=== PATIENT | male | born 1960 | race Caucasian/White ===

== ENCOUNTER 2017-02-09 14:06 | Emergency (ER) | payer MEDICAID, OTHER ==
[~2017-02-09] VITALS: Ht 177.8 cm; Wt 74.2 kg
[~2017-02-09 14:06] MED LIST: DOXY100T PO; DOXY100T9 PO; LORA-446 PO
[2017-02-09 14:09] VITALS: BP 155/81
[2017-02-09] MEDS ORDERED: SODIUM CHLORIDE FLUSH 10ML SYR IVF ONE (15:00)
[2017-02-09] MEDS ORDERED: SODIUM CHLORIDE 0.9% 1,000ML IVBOLUS ONE (15:00)
[2017-02-09 15:26] LABS: HEMATOCRIT 43.9 % (39.2-51.8); HEMOGLOBIN 14.8 g/dL (13.7-18.0)
[2017-02-09 15:35] LABS: ASPARTATE AMINO TRANSFERASE 38 U/L (15-37); BLOOD UREA NITROGEN 15 mg/dL (7-18)
[2017-02-09 15:44] LABS: IS PT STATUS REG ER OR PRE ER? YES
== END 2017-02-09 17:30 | disposition home or self-care (01) ==
LOC: ED 16:28
DX: K29.20 Alcoholic gastritis without bleeding (principal); K52.9 Noninfective gastroenteritis and colitis, unspecified; F10.220 Alcohol dependence with intoxication, uncomplicated; J44.9 Chronic obstructive pulmonary disease, unspecified; I10 Essential (primary) hypertension
CPT/HCPCS: 36415; 74020; 80053; 83690; 84484; 85025; 93005; 99285

== ENCOUNTER 2019-10-29 09:50 | Observation (INO) | payer SELFPAY ==
[~2019-10-29] VITALS: Ht 172.7 cm; Wt 79.3 kg
[~2019-10-29 09:50] MED LIST changes: +DOXY-162 PO; -DOXY100T9 PO
--- NOTE | 2019-10-29 10:42 | NUR ---
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
[2019-10-29] MEDS ORDERED: NITROGLYCERIN SINGLE TAB 0.4 MG SL PRN (11:00)
[2019-10-29] MEDS ORDERED: ASPIRIN 81 MG TABLET CHEW PO ONE (11:00)
[2019-10-29] MEDS ORDERED: SODIUM CHLORIDE FLUSH 10ML SYR IVF ONE (11:00)
--- NOTE | 2019-10-29 11:03 | NUR ---
REPORT RECEIVED FROM SANYA MARKS. ASSUMED CARE OF PT AT THIS TIME. PT CURRENTLY RESTING ON GURNEY IN QUIET, DARK ROOM. NO ACUTE DISTRESS NOTED AT THIS TIME. RESP EVEN AND UNLABORED. AO X 4. SKIN PWD. PT ON CONT BP, CARDIAC AND O2 MONITORS. CALL LIGHT WITHIN REACH. WILL CONT TO MONITOR PT.
[2019-10-29] MEDS ORDERED: ASPIRIN 81 MG TABLET CHEW ONE (11:09)
[2019-10-29] MEDS ORDERED: NITROGLYCERIN SINGLE TAB 0.4 MG SL ONE (11:09)
[2019-10-29 11:30] LABS: BASOPHILS # (AUTO) 0.02 x10^3/uL (0-0.1); BASOPHILS % (AUTO) 0 % (0-1); EOSINOPHILS # (AUTO) 0.11 x10^3/uL (0-0.4); EOSINOPHILS % (AUTO) 2 % (1-7); LYMPHOCYTES # (AUTO) 2.08 x10^3/uL (1-3.4); LYMPHOCYTES % (AUTO) 31 % (22-44); MD NO; MEAN CORPUSCULAR HEMOGLOBIN 29.8 pg (27.5-34.5); MEAN CORPUSCULAR HGB CONC 33.8 g/dL (33.2-36.2); MEAN PLATELET VOLUME 8.3 fL (7.4-10.4); MONOCYTES % (AUTO) 9 % (2-9); NEUTROPHILS # (AUTO) 3.96 x10^3/uL (1.8-6.8); NEUTROPHILS % (AUTO) 59 % (42-75); PLATELET COUNT 341 x10^3/uL (130-400); RED BLOOD COUNT 5.26 x10^6/uL (4.38-5.82); RED CELL DISTRIBUTION WIDTH 14.7 % (9.4-14.8)
--- NOTE | 2019-10-29 11:30 | NUR ---
PT CURRENTLY REPORTS 2/10 STERNAL CP. 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 PT AO X 4. SKIN PWD. RESP EVEN AND UNLABORED. 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 PT MEDICATED ORDERED FOR PAIN. CALL LIGHT WITHIN REACH. WILL CONT TO MONITOR PT.
[2019-10-29 11:38] LABS: CHLORIDE 112 mmol/L (98-107)
[2019-10-29 11:39] LABS: ALANINE AMINOTRANSFERASE 24 U/L (12-78); ALBUMIN 3.6 g/dL (3.4-5.0); ANION GAP 6 mmol/L (5-15); CALCIUM 8.8 mg/dL (8.5-10.1); CREATININE 0.78 mg/dL (0.7-1.3)
[2019-10-29 11:43] LABS: ALKALINE PHOSPHATASE 73 U/L (45-117); BILIRUBIN,TOTAL 0.2 mg/dL (0.2-1.0); TOTAL PROTEIN 7.5 g/dL (6.4-8.2); TROPONIN I < 0.015 ng/mL (0.000-0.045)
--- NOTE | 2019-10-29 11:59 | NUR ---
PT CURRENTLY SLEEPING ON GURNEY, BUT AWAKENS EASILY TO NAME BEING CALLED. PT AO X 4. SKIN PWD. RESP EVEN AND UNLABORED. PT CURRENTLY DENIES PAIN. PT ON CONT BP, CARDIAC AND O2 MONITORS. CALL LIGHT WITHIN REACH. WILL CONT TO MONITOR PT.
--- NOTE | 2019-10-29 13:10 | NUR ---
PT CURRENTLY SLEEPING ON [id number]. AWAKENS EASILY TO NAME BEING CALLED. NO ACUTE DISTRESS NOTED. PT CURRENTLY DENIES PAIN. PT AO X 4. SKIN PWD. RESP EVEN AND UNLABORED. 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 PT ON CONT BP, CARDIAC AND O2 MONITORS. CALL LIGHT WITHIN REACH. WILL CONT TO MONITOR PT.
[2019-10-29] MEDS ORDERED: SODIUM CHLORIDE FLUSH 10ML SYR IVF PRN (13:30)
--- NOTE | 2019-10-29 13:59 | NUR ---
REPORT TO SANYA ROBBINS WHO ASSUMED CARE OF PT.
[2019-10-29] MEDS ORDERED: ACETAMINOPHEN 325 MG TABLET PO PRN (14:00)
[2019-10-29] MEDS ORDERED: NICOTINE 14MG/24 HR PATCH.TD24 TD ONE (14:00)
[2019-10-29] MEDS ORDERED: ONDANSETRON ODT 4 MG PO PRN (14:00)
[2019-10-29] MEDS ORDERED: ONDANSETRON 2MG/ML, 2ML IVPush PRN (14:00)
--- NOTE | 2019-10-29 14:22 | NUR ---
RECEIVED REPORT FROM OSCAR SEGUNDO. INTRODUCED MYSELF TO PT. PT RESTING COMFORTABLY AND VS STABLE. WILL CONTINUE TO MONITOR PT.
--- NOTE | 2019-10-29 15:08 | NUR ---
GAVE REPORT TO MARCO A SEGUNDO
[2019-10-29] MEDS: NICOTINE 14MG/24 HR PATCH.TD24 TD SCH (16:15)
[2019-10-29] MEDS: ENOXAPARIN 40 MG/0.4 ML SQ SCH (16:51)
[2019-10-29 17:33] LABS: TROPONIN I < 0.015 ng/mL (0.000-0.045)
[2019-10-29 18:20] VITALS: BP 124/76
[2019-10-29 22:57] LABS: TROPONIN I < 0.015 ng/mL (0.000-0.045)
[2019-10-30 00:04] VITALS: BP 116/80
[2019-10-30] MEDS ORDERED: ASPIRIN 81 MG TABLET CHEW PO SCH (06:00)
[2019-10-30 06:07] LABS: BASOPHILS # (AUTO) 0.02 x10^3/uL (0-0.1); BASOPHILS % (AUTO) 0 % (0-1); EOSINOPHILS % (AUTO) 1 % (1-7); LYMPHOCYTES % (AUTO) 20 % (22-44); MD NO; MEAN CORPUSCULAR HEMOGLOBIN 29.2 pg (27.5-34.5); MEAN CORPUSCULAR HGB CONC 33.3 g/dL (33.2-36.2); MEAN CORPUSCULAR VOLUME 87.5 fL (81-97); MEAN PLATELET VOLUME 8.6 fL (7.4-10.4); MONOCYTES # (AUTO) 0.64 x10^3/uL (0.2-0.8); MONOCYTES % (AUTO) 8 % (2-9); NEUTROPHILS # (AUTO) 5.66 x10^3/uL (1.8-6.8); NEUTROPHILS % (AUTO) 71 % (42-75); PLATELET COUNT 324 x10^3/uL (130-400); RED BLOOD COUNT 5.36 x10^6/uL (4.38-5.82); RED CELL DISTRIBUTION WIDTH 14.1 % (9.4-14.8)
[2019-10-30 06:12] LABS: ALANINE AMINOTRANSFERASE 21 U/L (12-78); ALBUMIN 3.5 g/dL (3.4-5.0); ANION GAP 5 mmol/L (5-15); CALCIUM 8.9 mg/dL (8.5-10.1); CHLORIDE 107 mmol/L (98-107); CREATININE 0.76 mg/dL (0.7-1.3)
[2019-10-30 06:15] LABS: ALKALINE PHOSPHATASE 53 U/L (45-117); BILIRUBIN,TOTAL 0.6 mg/dL (0.2-1.0); CHOL/HDL RATIO 4.3; CHOLESTEROL, TOTAL 191 mg/dL (140-239); HDL CHOL % 23 % (26-37); HDL CHOLESTEROL (DIRECT) 44 mg/dL (40-60); LDL CHOLESTEROL,CALCULATED 116 mg/dL (54-169); LDL/HDL RATIO 2.6 (0.5-3.0); TOTAL PROTEIN 7.1 g/dL (6.4-8.2); TRIGLYCERIDES 157 mg/dL (50-200); VLDL CHOLESTEROL 31 mg/dL (0-25)
[2019-10-30 07:05] VITALS: BP 137/83
[2019-10-30] MEDS ORDERED: REGADENOSON 0.4 MG/5 ML SYRINGE ONE (08:24)
[2019-10-30] MEDS ORDERED: MULTIVITAMIN 1 TABLET PO SCH (09:00)
[2019-10-30] MEDS: ENOXAPARIN 40 MG/0.4 ML SQ SCH (14:05)
[2019-10-30] MEDS: NICOTINE 14MG/24 HR PATCH.TD24 TD SCH (14:06)
[2019-10-30 14:38] VITALS: BP 128/78
[2019-10-30] MEDS ORDERED: CARV3.12 PO (16:52)
[2019-10-30] MEDS ORDERED: MULT-449 PO (16:52)
== END 2019-10-30 17:44 | disposition home or self-care (01) ==
LOC: ED 12:24 → EDIP 13:24 → INTOOBSV 13:24 → 5SO 15:32
PROVIDERS: ADMIT Internal Medicine; ATTEND Internal Medicine
DX: R07.89 Other chest pain (principal); I11.0 Hypertensive heart disease with heart failure; F41.1 Generalized anxiety disorder; I42.8 Other cardiomyopathies; F17.200 Nicotine dependence, unspecified, uncomplicated; I50.20 Unspecified systolic (congestive) heart failure; J44.9 Chronic obstructive pulmonary disease, unspecified; Z79.899 Other long term (current) drug therapy
CPT/HCPCS: 36415; 71045; 78452; 80053; 80061; 83735; 84443; 84484; 85025; 85379; 93005; 93017; 93306; 96372; 99285; A9502; G0378; J1650; J2785

== ENCOUNTER 2019-11-28 10:06 | Emergency (ER) | payer SELFPAY ==
[~2019-11-28] VITALS: Ht 172.7 cm; Wt 76.4 kg
[~2019-11-28 10:06] MED LIST changes: +CARV3.12 PO; +MULT-449 PO
--- NOTE | 2019-11-28 10:23 | NUR ---
TIME RECORDER: PT TO ROOM FROM FRED ADHIKARI
[2019-11-28] MEDS ORDERED: SODIUM CHLORIDE FLUSH 10ML SYR IVF ONE (11:00)
[2019-11-28] MEDS ORDERED: maalox/diphenh/lido/sucralfate 5 ML PO PRN (11:00)
[2019-11-28] MEDS ORDERED: SODIUM CHLORIDE 0.9% 1,000ML IVBOLUS ONE (11:00)
[2019-11-28] MEDS ORDERED: DEXAMETHASONE 4 MG/ML, 1ML IVPush ONE (11:00)
[2019-11-28 11:21] LABS: BASOPHILS # (AUTO) 0.02 x10^3/uL (0-0.1); BASOPHILS % (AUTO) 0 % (0-1); EOSINOPHILS # (AUTO) 0.01 x10^3/uL (0-0.4); EOSINOPHILS % (AUTO) 0 % (1-7); LYMPHOCYTES # (AUTO) 0.93 x10^3/uL (1-3.4); LYMPHOCYTES % (AUTO) 13 % (22-44); MD NO; MEAN CORPUSCULAR HEMOGLOBIN 29.5 pg (27.5-34.5); MEAN CORPUSCULAR HGB CONC 33.4 g/dL (33.2-36.2); MEAN CORPUSCULAR VOLUME 88.2 fL (81-97); MEAN PLATELET VOLUME 8.1 fL (7.4-10.4); MONOCYTES # (AUTO) 0.99 x10^3/uL (0.2-0.8); MONOCYTES % (AUTO) 14 % (2-9); NEUTROPHILS # (AUTO) 5.31 x10^3/uL (1.8-6.8); NEUTROPHILS % (AUTO) 73 % (42-75); PLATELET COUNT 307 x10^3/uL (130-400); RED CELL DISTRIBUTION WIDTH 14.4 % (9.4-14.8)
[2019-11-28] MEDS ORDERED: DEXAMETHASONE 4 MG/ML, 1ML ONE (11:26)
[2019-11-28 11:30] LABS: ALBUMIN 3.5 g/dL (3.4-5.0); ANION GAP 10 mmol/L (5-15); CHLORIDE 101 mmol/L (98-107); CREATININE 1.08 mg/dL (0.7-1.3)
--- NOTE | 2019-11-28 11:36 | NUR ---
SORES MOUTH AND THROAT FOR A WEEK. DIFFICULTY DRINKING AND EATING BECAUSE OF PAIN. ADDITIONALLY C/O ESOPHAGEAL PAIN WHEN SWALLOWING. IV FLUIDS INFUSING, MEDICATED WITH DECADRON NOTED ON AUG. MAGIC MOUTHWASH REQUESTED FROM PHARMACY.
--- NOTE | 2019-11-28 12:59 | NUR ---
resting with eyes closed while awaiting re-eval
[2019-11-28 13:57] VITALS: BP 147/81
== END 2019-11-28 14:00 | disposition home or self-care (01) ==
LOC: ED 13:00
DX: J02.8 Acute pharyngitis due to other specified organisms (principal); B97.89 Other viral agents as the cause of diseases classified elsewhere; K13.79 Other lesions of oral mucosa; R42 Dizziness and giddiness; R00.0 Tachycardia, unspecified; J44.9 Chronic obstructive pulmonary disease, unspecified; I10 Essential (primary) hypertension
CPT/HCPCS: 36415; 80048; 82040; 85025; 93005; 96361; 96374; 99284; J1100; J7030

== ENCOUNTER 2020-02-18 04:32 | Emergency (ER) | payer SELFPAY ==
[~2020-02-18] VITALS: Ht 172.7 cm; Wt 77.3 kg
[2020-02-18] MEDS ORDERED: ONDANSETRON ODT 4 MG PO ONE (05:30)
[2020-02-18] MEDS ORDERED: LORazepam 1MG TABLET PO ONE (05:30)
[2020-02-18] MEDS ORDERED: THIAMINE 100MG TABLET PO ONE (05:30)
[2020-02-18] MEDS ORDERED: ONDANSETRON ODT 4 MG ONE (05:39)
[2020-02-18] MEDS ORDERED: LORazepam 1MG TABLET ONE (05:40)
[2020-02-18 05:53] LABS: BASOPHILS # (AUTO) 0.02 x10^3/uL (0-0.1); BASOPHILS % (AUTO) 0 % (0-1); EOSINOPHILS # (AUTO) 0.09 x10^3/uL (0-0.4); EOSINOPHILS % (AUTO) 1 % (1-7); LYMPHOCYTES # (AUTO) 1.49 x10^3/uL (1-3.4); LYMPHOCYTES % (AUTO) 21 % (22-44); MD NO; MEAN CORPUSCULAR HEMOGLOBIN 29.6 pg (27.5-34.5); MEAN CORPUSCULAR HGB CONC 33.1 g/dL (33.2-36.2); MEAN CORPUSCULAR VOLUME 89.2 fL (81-97); MEAN PLATELET VOLUME 7.9 fL (7.4-10.4); MONOCYTES # (AUTO) 0.94 x10^3/uL (0.2-0.8); MONOCYTES % (AUTO) 13 % (2-9); NEUTROPHILS # (AUTO) 4.61 x10^3/uL (1.8-6.8); NEUTROPHILS % (AUTO) 65 % (42-75); PLATELET COUNT 272 x10^3/uL (130-400); RED CELL DISTRIBUTION WIDTH 15.3 % (9.4-14.8)
[2020-02-18] MEDS ORDERED: THIAMINE 100MG TABLET ONE (05:54)
[2020-02-18 06:00] LABS: ALANINE AMINOTRANSFERASE 25 U/L (12-78); ALBUMIN 3.6 g/dL (3.4-5.0); ANION GAP 7 mmol/L (5-15); CALCIUM 8.6 mg/dL (8.5-10.1); CHLORIDE 106 mmol/L (98-107)
[2020-02-18 06:02] LABS: ALKALINE PHOSPHATASE 78 U/L (45-117); BILIRUBIN,TOTAL 0.3 mg/dL (0.2-1.0); CREATININE 0.63 mg/dL (0.7-1.3); TOTAL PROTEIN 7.1 g/dL (6.4-8.2)
--- NOTE | 2020-02-18 06:23 | NUR ---
Alert, answering questions appropriately. Pt presents to ED seeking help with detoxing. Pt states increased ETOH use x months r/t being out of work d/t COVID. States he drinks 1+ liters of hard alcohol daily. Last drink ~1 hour ago. Pt states he wants to return to work and stop drinking, hx of ETOH withdrawal, unknown seizure hx. C/o BARILLAS, tremors, and mild nausea with associated dry heaves. Denies chest pain. Denies SOB. Denies abd pain. Denies fever/chills. Ambulating independently, steady gait.
[2020-02-18 06:58] VITALS: BP 147/89
== END 2020-02-18 07:01 | disposition home or self-care (01) ==
LOC: ED 05:35
DX: F10.239 Alcohol dependence with withdrawal, unspecified (principal); R45.4 Irritability and anger; R11.2 Nausea with vomiting, unspecified; J44.9 Chronic obstructive pulmonary disease, unspecified; I10 Essential (primary) hypertension; E87.6 Hypokalemia; F17.200 Nicotine dependence, unspecified, uncomplicated; Y90.0 Blood alcohol level of less than 20 mg/100 ml
CPT/HCPCS: 36415; 80053; 85025; 99284; Q0162

== ENCOUNTER 2020-09-02 18:51 | Emergency (ER) | payer SELFPAY ==
[~2020-09-02] VITALS: Ht 172.7 cm; Wt 79.4 kg
[2020-09-02 18:57] VITALS: BP 138/81
--- NOTE | 2020-09-02 19:30 | NUR ---
PT AMBULATORY TO THE BATHROOM WITH A STEADY GAIT
--- NOTE | 2020-09-02 20:30 | NUR ---
pt unhappy that we will not perscribe ativan or librium. pt escorted out by security.
== END 2020-09-02 20:32 | disposition home or self-care (01) ==
LOC: ED 20:16
DX: Z00.00 Encounter for general adult medical examination without abnormal findings (principal); F10.229 Alcohol dependence with intoxication, unspecified; J44.9 Chronic obstructive pulmonary disease, unspecified; I10 Essential (primary) hypertension; Y90.0 Blood alcohol level of less than 20 mg/100 ml
CPT/HCPCS: 99281

== ENCOUNTER 2021-01-05 13:27 | Emergency (ER) | payer MEDICAID ==
[~2021-01-05] VITALS: Ht 172.7 cm; Wt 74.5 kg
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
--- NOTE | 2021-01-05 13:44 | NUR ---
ERP DR. GASCA AT BEDSIDE FOR EVAL.
[2021-01-05] MEDS ORDERED: PERMETHRIN CRM 5%, 60GM ONE (14:26)
[2021-01-05] MEDS ORDERED: DIPH,PERTUSS(ACELL),TET VAC/PF 0.5 ML IM-VACC ONE ×2 (14:27→14:30)
[2021-01-05 14:30] VITALS: BP 102/52
[2021-01-05] MEDS ORDERED: PERMETHRIN CRM 5%, 60GM TP ONE (14:30)
--- NOTE | 2021-01-05 15:14 | NUR ---
TASK RN: PT REC'VD DISCHARGE INSTRUCTIONS AND EDUCATION. PT HAD NO FURTHER QUESTIONS. PT AMBULATED TO DC AREA, STEADY GAIT.
== END 2021-01-05 15:20 | disposition home or self-care (01) ==
LOC: ED 14:59
DX: B86 Scabies (principal); F10.20 Alcohol dependence, uncomplicated; Y90.0 Blood alcohol level of less than 20 mg/100 ml; Z72.9 Problem related to lifestyle, unspecified; J44.9 Chronic obstructive pulmonary disease, unspecified; I10 Essential (primary) hypertension
CPT/HCPCS: 90471; 90715; 99283

== ENCOUNTER 2021-01-06 14:46 | Emergency (ER) | payer MEDICAID ==
[~2021-01-06] VITALS: Ht 167.6 cm; Wt 65.0 kg
[2021-01-06 14:51] VITALS: BP 132/81
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
== END 2021-01-06 15:58 | disposition home or self-care (01) ==
LOC: ED 15:30
DX: B86 Scabies (principal); F17.210 Nicotine dependence, cigarettes, uncomplicated; J44.9 Chronic obstructive pulmonary disease, unspecified; I11.9 Hypertensive heart disease without heart failure
CPT/HCPCS: 99283; 99406

== ENCOUNTER 2021-01-21 04:17 | Emergency (ER) | payer MEDICAID ==
[~2021-01-21] VITALS: Ht 172.7 cm; Wt 75.0 kg
[2021-01-21 04:25] VITALS: BP 127/76
[2021-01-21] MEDS ORDERED: THIAMINE 100MG TABLET PO ONE (04:30)
[2021-01-21 04:53] LABS: BASOPHILS % (AUTO) 1 % (0-1); EOSINOPHILS % (AUTO) 3 % (1-7); LYMPHOCYTES % (AUTO) 29 % (22-44); MEAN CORPUSCULAR HEMOGLOBIN 31.5 pg (27.5-34.5); MEAN CORPUSCULAR HGB CONC 34.8 g/dL (33.2-36.2); MEAN PLATELET VOLUME 7.8 fL (7.4-10.4); MONOCYTES % (AUTO) 12 % (2-9); NEUTROPHILS % (AUTO) 55 % (42-75); PLATELET COUNT 258 x10^3/uL (130-400); RED BLOOD COUNT 4.84 x10^6/uL (4.38-5.82); RED CELL DISTRIBUTION WIDTH 15.2 % (9.4-14.8)
[2021-01-21 05:03] LABS: ALBUMIN 3.8 g/dL (3.4-5.0); ANION GAP 7 mmol/L (5-15); CALCIUM 8.9 mg/dL (8.5-10.1); CHLORIDE 105 mmol/L (98-107)
[2021-01-21 05:05] LABS: CREATININE 0.67 mg/dL (0.7-1.3)
--- NOTE | 2021-01-21 06:03 | NUR ---
PT NOT IN LOBBY WHEN CALLED
--- NOTE | 2021-01-21 07:14 | NUR ---
NIL at this time
--- NOTE | 2021-01-21 07:20 | NUR ---
SHANK THREADER: CALLED NO ANSWER
--- NOTE | 2021-01-21 07:30 | NUR ---
FEDERAL JUDICIAL LAW CLERK: CALLED PT NO ANSWER
== END 2021-01-21 07:31 | disposition left against medical advice (07) ==
LOC: ED 07:25
DX: F10.129 Alcohol abuse with intoxication, unspecified (principal); Y90.0 Blood alcohol level of less than 20 mg/100 ml
CPT/HCPCS: 36415; 80048; 80320; 82040; 85025; 99283; G0480

== ENCOUNTER 2021-02-15 04:13 | Emergency (ER) | payer MEDICAID, OTHER ==
[~2021-02-15] VITALS: Ht 172.7 cm; Wt 72.1 kg
--- NOTE | 2021-02-15 05:42 | NUR ---
backwinder: patient to room from lobby.
[2021-02-15 07:27] VITALS: BP 152/85
--- NOTE | 2021-02-15 07:34 | NUR ---
PT REC'VD DISCGARGE INSTRUCTIONS, EDUCATION, AND PAPERWORK FROM SANYA BECKER. PT AMBULATED TO DC AREA, STEADY GAIT.
== END 2021-02-15 07:36 | disposition home or self-care (01) ==
LOC: ED 05:43
DX: B35.3 Tinea pedis (principal); J44.9 Chronic obstructive pulmonary disease, unspecified; I11.9 Hypertensive heart disease without heart failure
CPT/HCPCS: 99282

== ENCOUNTER 2021-02-20 21:01 | Emergency (ER) | payer OTHER ==
[~2021-02-20] VITALS: Ht 165.1 cm; Wt 73.3 kg
[2021-02-20 21:11] VITALS: BP 125/77
[2021-02-20 22:25] LABS: BASOPHILS % (AUTO) 0 % (0-1); EOSINOPHILS % (AUTO) 1 % (1-7); LYMPHOCYTES % (AUTO) 12 % (22-44); MEAN CORPUSCULAR HEMOGLOBIN 31.5 pg (27.5-34.5); MEAN CORPUSCULAR HGB CONC 34.4 g/dL (33.2-36.2); MEAN PLATELET VOLUME 8.3 fL (7.4-10.4); MONOCYTES % (AUTO) 14 % (2-9); NEUTROPHILS % (AUTO) 72 % (42-75); PLATELET COUNT 263 x10^3/uL (130-400); RED BLOOD COUNT 4.97 x10^6/uL (4.38-5.82); RED CELL DISTRIBUTION WIDTH 14.5 % (9.4-14.8)
--- NOTE | 2021-02-20 22:48 | NUR ---
not in lobby
--- NOTE | 2021-02-20 22:48 | NUR ---
pt to room from lobby
--- NOTE | 2021-02-20 23:05 | NUR ---
pt to room from lobby
--- NOTE | 2021-02-21 00:08 | NUR ---
Patient given discharge instructions and they have confirmed that they understand the instructions. Patient ambulatory with steady gait. NAD, all questions answered appropriately, denies additional needs at this time. No personal belongings left in room after discharge.
== END 2021-02-21 00:10 | disposition home or self-care (01) ==
LOC: ED 23:59
DX: A49.02 Methicillin resistant Staphylococcus aureus infection, unspecified site (principal); L03.116 Cellulitis of left lower limb; L03.115 Cellulitis of right lower limb; Z72.9 Problem related to lifestyle, unspecified; I10 Essential (primary) hypertension; J44.9 Chronic obstructive pulmonary disease, unspecified; F17.200 Nicotine dependence, unspecified, uncomplicated
CPT/HCPCS: 36415; 85025; 93005; 99285

== ENCOUNTER 2021-03-02 20:27 | Emergency (ER) | payer MEDICAID ==
[~2021-03-02] VITALS: Ht 172.7 cm; Wt 72.1 kg
[2021-03-02 20:33] VITALS: BP 139/85
[2021-03-02 21:26] LABS: ALBUMIN 3.4 g/dL (3.4-5.0); ANION GAP 9 mmol/L (5-15); CALCIUM 8.6 mg/dL (8.5-10.1); CHLORIDE 101 mmol/L (98-107)
[2021-03-02 21:28] LABS: BASOPHILS % (AUTO) 0 % (0-1); EOSINOPHILS % (AUTO) 0 % (1-7); LYMPHOCYTES % (AUTO) 24 % (22-44); MEAN CORPUSCULAR HEMOGLOBIN 30.9 pg (27.5-34.5); MEAN CORPUSCULAR HGB CONC 34.2 g/dL (33.2-36.2); MEAN PLATELET VOLUME 8.2 fL (7.4-10.4); MONOCYTES % (AUTO) 15 % (2-9); NEUTROPHILS % (AUTO) 61 % (42-75); PLATELET COUNT 281 x10^3/uL (130-400); RED BLOOD COUNT 5.08 x10^6/uL (4.38-5.82); RED CELL DISTRIBUTION WIDTH 14.3 % (9.4-14.8)
[2021-03-02 21:32] LABS: ALANINE AMINOTRANSFERASE 64 U/L (12-78); ALKALINE PHOSPHATASE 102 U/L (45-117); BILIRUBIN,TOTAL 0.5 mg/dL (0.2-1.0); CREATININE 0.79 mg/dL (0.7-1.3); TOTAL PROTEIN 8.4 g/dL (6.4-8.2); TROPONIN I < 0.015 ng/mL (0.000-0.045)
== END 2021-03-02 23:54 | disposition home or self-care (01) ==
LOC: ED 22:09
DX: J44.9 Chronic obstructive pulmonary disease, unspecified (principal); R07.89 Other chest pain; R06.02 Shortness of breath; R00.0 Tachycardia, unspecified; F17.200 Nicotine dependence, unspecified, uncomplicated; I10 Essential (primary) hypertension
CPT/HCPCS: 36415; 71045; 80053; 84484; 85025; 93005; 99285

== ENCOUNTER 2021-03-05 20:53 | Emergency (ER) | payer MEDICAID ==
[~2021-03-05] VITALS: Ht 172.7 cm; Wt 72.0 kg
[2021-03-05 21:02] VITALS: BP 125/80
[2021-03-05 21:41] LABS: BASOPHILS % (AUTO) 1 % (0-1); EOSINOPHILS % (AUTO) 1 % (1-7); LYMPHOCYTES % (AUTO) 32 % (22-44); MEAN CORPUSCULAR HEMOGLOBIN 31.5 pg (27.5-34.5); MEAN CORPUSCULAR HGB CONC 34.9 g/dL (33.2-36.2); MEAN PLATELET VOLUME 8.5 fL (7.4-10.4); MONOCYTES % (AUTO) 14 % (2-9); NEUTROPHILS % (AUTO) 53 % (42-75); PLATELET COUNT 328 x10^3/uL (130-400); RED BLOOD COUNT 4.93 x10^6/uL (4.38-5.82); RED CELL DISTRIBUTION WIDTH 14.4 % (9.4-14.8)
[2021-03-05 21:48] LABS: ALBUMIN 3.2 g/dL (3.4-5.0); ANION GAP 4 mmol/L (5-15); CALCIUM 8.7 mg/dL (8.5-10.1); CHLORIDE 106 mmol/L (98-107); CREATININE 0.62 mg/dL (0.7-1.3)
[2021-03-05 21:50] LABS: TROPONIN I < 0.015 ng/mL (0.000-0.045)
--- NOTE | 2021-03-06 00:26 | NUR ---
NA X 1
--- NOTE | 2021-03-06 01:03 | NUR ---
NA X 2
--- NOTE | 2021-03-06 01:26 | NUR ---
no answer, not in lobby
== END 2021-03-06 01:27 | disposition left against medical advice (07) ==
LOC: ED 21:00
DX: U07.1 COVID-19 (principal); R06.02 Shortness of breath
CPT/HCPCS: 36415; 71045; 80048; 82040; 84484; 85025; 99285; U0003; U0005

== ENCOUNTER 2021-03-07 20:00 | Emergency (ER) | payer MEDICAID ==
--- NOTE | 2021-03-07 20:14 | NUR ---
CALLED PT FOR PAYAL. NO ANSWER X1
--- NOTE | 2021-03-07 20:19 | NUR ---
CALLED FOR PT FOR PAYAL. NO ANSWER X2 NOW.
--- NOTE | 2021-03-07 20:27 | NUR ---
CALLED PT FOR TRAIGE. 3RD TIME NO ANSWER.
--- NOTE | 2021-03-07 20:52 | NUR ---
PT NOT IN LOBBY X4. CALLED MULTIPLE TIMES. PRESUMED LEFT BEFORE TRIAGE.
== END 2021-03-07 20:53 | disposition left against medical advice (07) ==
LOC: ED 20:05
DX: J18.9 Pneumonia, unspecified organism (principal); Z53.21 Procedure and treatment not carried out due to patient leaving prior to being seen by health care provider

== ENCOUNTER 2021-03-07 21:26 | Emergency (ER) | payer MEDICAID ==
[~2021-03-07] VITALS: Ht 172.7 cm; Wt 72.8 kg
--- NOTE | 2021-03-07 22:18 | NUR ---
pt to room from lobby
[2021-03-07 22:28] VITALS: BP 157/90
== END 2021-03-07 23:28 | disposition home or self-care (01) ==
LOC: ED 21:31
DX: U07.1 COVID-19 (principal); J40 Bronchitis, not specified as acute or chronic; R94.31 Abnormal electrocardiogram [ECG] [EKG]
CPT/HCPCS: 71045; 93005; 99283